=== PATIENT | male | born 1955 | race African-American/Black ===

== ENCOUNTER → 2017-07-30 | Outpatient (CLI) | payer OTHER | END | disposition home or self-care (01) | LOC: RT 09:32 | DX: G47.33 Obstructive sleep apnea (adult) (pediatric) (principal); G47.34 Idiopathic sleep related nonobstructive alveolar hypoventilation | CPT/HCPCS: G0399 ==

== ENCOUNTER → 2018-09-03 | Day surgery (SDC) | payer OTHER ==
[~2018-09-03] VITALS: Ht 172.7 cm; Wt 86.2 kg
[~2018-09-03] MED LIST: ASPI-630 PO; BENA10TA6 PO; BUPIVACAINE MPF 0.25% 30 ML VIAL. ONE; BUPIVACAINE-EPI 0.25%-1:200000 MPF 30 ML VIAL. ONE; CRESTOR40 MG PO; HYDR-3164 PO; HYDROcodone/APAP 5/325MG 1 TAB TABLET PO ONE; HYDROmorphone 2 MG/ML VIAL IV PRN; IV RINGERS,LACTATED 1000ML 1,000 ML IV SCH; LIDOCAINE 1% Multi-Dose 20 ML VIAL. ONE; LIDOCAINE 1% PF 2 ML VIAL. ID PRN; MIDAZOLAM HCL/PF 2 MG/2 ML VIAL. ONE; MORPHINE SULFATE 2 MG/ML VIAL. IV PRN; ONDANSETRON PF 4 MG/2 ML VIAL. IV PRN; PROCHLORPERAZINE 10 MG/2 ML VIAL. IV PRN; PROPOFOL 20 ML IV ONE; ceFAZolin 2GM PREMIX 2 GM/50 ML BAG IV ONE; fentaNYL PF VIAL 100 MCG/2 ML VIAL IV PRN
--- NOTE | 2018-09-03 07:45 | DISCH ---
DISCHARGE INSTRUCTIONS Condition on Discharge Condition on Discharge: Stable Activity After Discharge Activity Instructions for Disc: Other, see below (avoid hard grasp with right hand, fine motor use of right hand unrestricted) Diet after Discharge Diet after Discharge: Regular Wound Incision Care Wound/Incision Care: Ice to area for comfort, Keep wound elevated, Do not change dressing (keep dressing on until postoperative visit unless soiled) Contacting the after DC Call your doctor for: Concerns you may have Follow-Up Follow up with: Dr. Patten 10 days ELIZABETH PATTEN MD Sep 03, 2018 07:45
--- NOTE | 2018-09-03 08:08 | PDOC4 ---
Operative Note Operative Note Date of surgery: 09/03/2018 Preoperative diagnosis: Right carpal tunnel syndrome Postoperative diagnosis: Same with moderate median nerve compression Operative procedure: Right carpal tunnel release Surgeon: Earline Anesthesia: Gotha block Estimated blood loss: 1 mL Complications: None Operative indications: Patient has ongoing numbness in the median nerve distribution increasingly more severe and unresponsive to nonoperative management EMG confirmed median nerve compression at the carpal tunnel I had gone over with him nonoperative measures of bracing and activity modification which have been inadequate and the possibility of carpal tunnel release including the possibility of continued numbness possibility of nerve or blood vessel damage infection pain at the incision site medical or other anesthetic consultations among others she wishes to proceed with surgical evaluation and treatment Operative text: Patient was identified procedure verified patient placed in the supine position on the operating table. After adequate amounts of Jessica block anesthesia were administered the right upper extremity was prepped and draped in standard sterile fashion. After timeout was performed patient procedure identified and verified a longitudinal incision was made just distal to the distal palmar crease within Joan's line skin folds dissection was carried out down to the transverse carpal ligament which was divided longitudinally under direct vision. Complete release was confirmed visually and palpably median nerve was noted to have moderate compression and no synovitis present in the carpal tunnel with the flexor tendon integrity intact. Closure accomplished with nylon suture in a vertical mattress fashion sterile dressings were then applied fingers are noted be warm pink find deflation of the tourniquet after total tourniquet time proximally 22 minutes patient was returned to recovery room in stable condition having tolerated the procedure well ELIZABETH MO MD Sep 03, 2018 08:08
[2018-09-03 08:42] VITALS: BP 138/85
== END ==
LOC: SURG 06:08
PROVIDERS: ATTEND Orthopaedic Surgery
DX: G56.01 Carpal tunnel syndrome, right upper limb (principal); I10 Essential (primary) hypertension; Z79.82 Long term (current) use of aspirin
CPT/HCPCS: 64721; J0696; J2250; J2704; J3490

== ENCOUNTER → 2019-02-28 | Day surgery (SDC) | payer OTHER ==
[~2019-02-28] MED LIST changes: +BENA10TA55 PO; -BENA10TA6 PO; -BUPIVACAINE MPF 0.25% 30 ML VIAL. ONE; -BUPIVACAINE-EPI 0.25%-1:200000 MPF 30 ML VIAL. ONE; -HYDROcodone/APAP 5/325MG 1 TAB TABLET PO ONE; -LIDOCAINE 1% Multi-Dose 20 ML VIAL. ONE; -LIDOCAINE 1% PF 2 ML VIAL. ID PRN; +LIDOCAINE 2% PF 5 ML VIAL. ONE; -MIDAZOLAM HCL/PF 2 MG/2 ML VIAL. ONE; -PROPOFOL 20 ML IV ONE; +PROPOFOL 40 ML IV ONE; -ceFAZolin 2GM PREMIX 2 GM/50 ML BAG IV ONE
--- NOTE | 2019-02-28 08:57 | CONS ---
DATE OF CONSULTATION: 02/28/2019 REFERRING PHYSICIAN: Dr. Joao Pepper. HISTORY OF PRESENT ILLNESS: This is a 63-year-old -[place] male with past medical history significant for hypertension, hyperlipidemia, and remote history of hyperplastic polyps, is seen for interval colon exam. Bowel habits are regular without diarrhea or constipation. There has been no melena and/or hematochezia. Weight and appetite are stable. Family history is unrevealing for colon cancer. Last colonoscopy was 10 years ago, which was nonrevealing. He is otherwise without additional complaints. PAST MEDICAL HISTORY: Hypertension, hyperlipidemia, and history of hyperplastic polyps. ALLERGIES: None. MEDICATIONS: Include aspirin, benazepril, and Crestor. SOCIAL HISTORY: He is a nonsmoker, nondrinker. FAMILY HISTORY: Noncontributory. REVIEW OF SYSTEMS: Per records. PAST SURGICAL HISTORY: As per records. PHYSICAL EXAMINATION: GENERAL: Reveals a well-nourished, well-developed male who is alert, cooperative, in no acute distress. VITAL SIGNS: Temperature 97.8, pulse 72, respiratory rate 18. LUNGS: Clear. CARDIOVASCULAR: Reveals an S1, S2 without S3, S4 or appreciable murmur. ABDOMEN: Reveals a soft abdomen, normal bowel sounds, without appreciable hepatosplenomegaly. EXTREMITIES: Reveals no cyanosis, clubbing or edema. IMPRESSION AND PLAN: Colorectal screening is warranted at this time. Risks and benefits of procedure including risk of hemorrhage and perforation were discussed. The patient is willing to proceed. ESTEPHANIA CONTRERAS MD DR: BRITTA/haroon JOB#: [id number] / [id number] JOAO Addison MD
[2019-02-28 09:30] VITALS: BP 101/59
--- NOTE | 2019-03-03 16:06 | PATHOLOGY ---
[facility] Accession Number: [id number] . 01 Material submitted: . colon - DESCENDING COLON POLYP. Modifiers: descending . 01 Clinical history: . Pre-OP DX: Screening Post-OP DX: Polyp . 02 Diagnosis: Colon biopsies, descending colon polyp: - Hyperplastic polyp with mild chronic inflammation. . (JPM:lor; 03/03/2019) QMS 03/03/2019 0848 Local . 02 Comment: There are no adenomatous changes or evidence of malignancy. . 02 Electronically signed: . Raul Rodriguez MD, Pathologist NPI- [id number] . 01 Gross description: . Received in formalin labeled "Chris, [place], descending colon polyp," are 2 segments of klein soft tissue measuring 0.6 x 0.2 x 0.2 cm in aggregate dimensions and measuring 0.3 cm each in maximum dimension. The specimen is submitted entirely in cassette A1. (TSD; 02/28/2019) TOB/TOB 02/28/2019 1654 Local . 02 Pathologist provided ICD-10: K63.5 . 02 CPT . 752626 Specimen Comment: A courtesy copy of this report has been sent to [phone], [phone] Specimen Comment: [id number] Specimen Comment: Report sent to and Performed at: 01 [facility] [address] [facility] [address], [place] [id number] MD Ashwin Morales MD Phone: [phone] Performed at: 02 [facility] [address] [place], [place] [id number] MD Raul Rodriguez MD Phone: [phone]
== END ==
LOC: ENDOS 07:55
PROVIDERS: ATTEND Internal Medicine Gastroenterology
DX: Z12.11 Encounter for screening for malignant neoplasm of colon (principal); K63.5 Polyp of colon; K64.0 First degree hemorrhoids; K52.9 Noninfective gastroenteritis and colitis, unspecified; I10 Essential (primary) hypertension; E78.5 Hyperlipidemia, unspecified; Z86.010 Personal history of colon polyps; Z98.890 Other specified postprocedural states
CPT/HCPCS: 45380; J2001; J2704

== ENCOUNTER → 2021-02-23 | Outpatient (CLI) | payer MEDICARE ==
[2019-02-28 09:30] VITALS: BP 101/59
[~2021-02-23] MED LIST changes: -HYDROmorphone 2 MG/ML VIAL IV PRN; -IV RINGERS,LACTATED 1000ML 1,000 ML IV SCH; -LIDOCAINE 2% PF 5 ML VIAL. ONE; -MORPHINE SULFATE 2 MG/ML VIAL. IV PRN; -ONDANSETRON PF 4 MG/2 ML VIAL. IV PRN; -PROCHLORPERAZINE 10 MG/2 ML VIAL. IV PRN; -PROPOFOL 40 ML IV ONE; -fentaNYL PF VIAL 100 MCG/2 ML VIAL IV PRN
[2021-02-23 09:49] LABS: BASO % 1 % (0-3); EOS # 0.1 x10^3/uL (0.0-0.7); EOS % 5 % (0-3); HEMATOCRIT 43.4 % (39.0-53.0); HEMOGLOBIN 14.1 g/dL (13.0-17.5); LYMPH # 0.7 x10^3/uL (1.0-4.8); LYMPH % 38 % (24-48); MEAN CORPUSCULAR HEMOGLOBIN 28 pg (25-35); MEAN CORPUSCULAR HGB CONC 33 g/dL (31-37); MEAN CORPUSCULAR VOLUME 85 fL (79-100); MONO # 0.3 x10^3/uL (0.0-1.1); MONO % 17 % (0-9); NEUT # 0.7 x10^3/uL (1.8-7.7); NEUT % 40 % (31-73); PLATELET COUNT 163 x10^3/uL (140-400); RED CELL DISTRIBUTION WIDTH 14.9 % (11.5-14.5)
[2021-02-23 09:53] LABS: WHITE BLOOD COUNT 1.9 x10^3/uL (4.0-11.0)
[2021-02-23 10:20] LABS: ALBUMIN 3.4 g/dL (3.4-5.0); ALBUMIN/GLOBULIN RATIO 0.9 (1.0-1.7); CALCIUM 8.5 mg/dL (8.5-10.1); CREATININE 0.8 mg/dL (0.7-1.3); GFR 117.4; POTASSIUM 4.7 mmol/L (3.5-5.1); TOTAL BILIRUBIN 1.8 mg/dL (0.2-1.0); TOTAL PROTEIN 7.1 g/dL (6.4-8.2)
[2021-02-23 10:57] LABS: % ATYL 1 % (0-0); % BASOS 1 % (0-3); % EOS 3 % (0-5); % LYMPHS 46 % (24-48); % MONOS 16 % (0-10); % SEGS 33 % (35-66)
[2021-02-23 10:58] LABS: PLT ESTIMATE ADEQUATE (ADEQUATE)
[2021-02-24 12:12] LABS: KAPPA FREE 13.6 mg/L (3.3-19.4); LAMBDA FREE 8.5 mg/L (5.7-26.3)
[2021-02-24 15:34] LABS: ALBUM 4.1 g/dL (2.9-4.4); ALPHA 1 0.3 g/dL (0.0-0.4); ALPHA 2 0.6 g/dL (0.4-1.0); GAMMA 0.6 g/dL (0.4-1.8); IMMUNOGLOBULIN A 143 mg/dL (61-437); IMMUNOGLOBULIN G 627 mg/dL (603-1613); IMMUNOGLOBULIN M 48 mg/dL (20-172); PROTEIN TOTAL 6.6 g/dL (6.0-8.5); SPEP AG RATIO 1.6 (0.7-1.7)
== END ==
LOC: ONCLAB 09:22
PROVIDERS: ATTEND Internal Medicine Hematology & Oncology
DX: D72.818 Other decreased white blood cell count (principal)
CPT/HCPCS: 80053; 82525; 82607; 82746; 82784; 83520; 84165; 85007; 85025; 86334

== ENCOUNTER → 2021-03-09 | Outpatient (CLI) | payer MEDICARE ==
[2019-02-28 09:30] VITALS: BP 101/59
[2021-03-09 09:52] LABS: BASO % 1 % (0-3); EOS # 0.2 x10^3/uL (0.0-0.7); EOS % 8 % (0-3); HEMATOCRIT 42.7 % (39.0-53.0); HEMOGLOBIN 14.1 g/dL (13.0-17.5); LYMPH # 0.8 x10^3/uL (1.0-4.8); LYMPH % 38 % (24-48); MEAN CORPUSCULAR HEMOGLOBIN 28 pg (25-35); MEAN CORPUSCULAR HGB CONC 33 g/dL (31-37); MEAN CORPUSCULAR VOLUME 86 fL (79-100); MONO # 0.3 x10^3/uL (0.0-1.1); MONO % 15 % (0-9); NEUT # 0.8 x10^3/uL (1.8-7.7); NEUT % 38 % (31-73); PLATELET COUNT 169 x10^3/uL (140-400); RED BLOOD COUNT 4.98 x10^6/uL (4.30-5.70); RED CELL DISTRIBUTION WIDTH 14.3 % (11.5-14.5)
== END ==
LOC: ONCLAB 08:24
PROVIDERS: ATTEND Internal Medicine Hematology & Oncology
DX: D72.818 Other decreased white blood cell count (principal)
CPT/HCPCS: 36415; 85025; 86704; 86803; 87340

== ENCOUNTER → 2021-05-09 | Outpatient (CLI) | payer MEDICARE ==
[2019-02-28 09:30] VITALS: BP 101/59
[2021-05-09 09:59] LABS: BASO % 1 % (0-3); EOS # 0.1 x10^3/uL (0.0-0.7); EOS % 6 % (0-3); HEMATOCRIT 43.8 % (39.0-53.0); HEMOGLOBIN 14.1 g/dL (13.0-17.5); LYMPH # 0.9 x10^3/uL (1.0-4.8); LYMPH % 43 % (24-48); MEAN CORPUSCULAR HEMOGLOBIN 28 pg (25-35); MEAN CORPUSCULAR HGB CONC 32 g/dL (31-37); MEAN CORPUSCULAR VOLUME 85 fL (79-100); MONO # 0.4 x10^3/uL (0.0-1.1); MONO % 18 % (0-9); NEUT # 0.7 x10^3/uL (1.8-7.7); NEUT % 32 % (31-73); PLATELET COUNT 160 x10^3/uL (140-400); RED BLOOD COUNT 5.14 x10^6/uL (4.30-5.70); RED CELL DISTRIBUTION WIDTH 14.6 % (11.5-14.5); WHITE BLOOD COUNT 2.1 x10^3/uL (4.0-11.0)
[2021-05-09 11:43] LABS: % EOS 7 % (0-5); % LYMPHS 58 % (24-48); % MONOS 6 % (0-10); % SEGS 29 % (35-66)
[2021-05-09 11:45] LABS: OVALOCYTES OCC; PLT ESTIMATE ADEQUATE (ADEQUATE); TARGET CELLS OCC; TEAR DROP CELLS OCC
== END ==
LOC: ONCLAB 09:17
PROVIDERS: ATTEND Internal Medicine Hematology & Oncology
DX: D72.818 Other decreased white blood cell count (principal)
CPT/HCPCS: 36415; 85007; 85025

== ENCOUNTER → 2021-06-29 | Outpatient (CLI) | payer MEDICARE ==
[2019-02-28 09:30] VITALS: BP 101/59
--- NOTE | 2021-06-29 16:00 | KCIC ---
Exam: XR KNEE 3 VIEWS_RT History: Right knee pain, medial aspect Comparison: None. Findings: Osseous mineralization is normal. No acute fracture or dislocation. Minimal medial tibiofemoral aleshia rtment narrowing and mild medial tibiofemoral compartment and patellar osteophytes. No effusion. No f ocal soft tissue swelling. Impression: 1. Mild degenerative changes of the right knee without acute osseous abnormality. Electronically signed by: Napoleon Alexander MD (06/29/2021 3:36 PM) [id number]
== END ==
LOC: KCIC 10:18
PROVIDERS: ATTEND Family Medicine
DX: M17.11 Unilateral primary osteoarthritis, right knee (principal); M25.761 Osteophyte, right knee
CPT/HCPCS: 73562